=== PATIENT | male | born 1995 | race Caucasian/White ===

== ENCOUNTER 2016-06-16 16:04 | Emergency (ER) | payer OTHER ==
[2016-06-16 16:09] VITALS: RESP 16
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
[2016-06-16] MEDS ORDERED: SILVER NITRATE APPLICATOR 1 APPL TP ONE (16:37)
[2016-06-16 17:50] VITALS: BP 113/84; PULSE 71; TEMP 97.5; O2SAT 100
== END 2016-06-16 18:08 | disposition home or self-care (01) ==
PROC: 2Y41X5Z Packing of Nasal Region using Packing Material (ICD-10-PCS; principal; 2016-06-16)
DX: R04.0 Epistaxis (principal); Z87.891 Personal history of nicotine dependence

== ENCOUNTER 2016-08-05 13:05 | Emergency (ER) | payer OTHER ==
[2016-08-05 13:13] VITALS: RESP 16
[2016-08-05] MEDS ORDERED: ONDANSETRON 4 MG/2 ML VIAL IVP ONE (13:41)
[2016-08-05] MEDS ORDERED: NS 1,000 ML IV ONE ×2 (13:41→14:00)
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
[2016-08-05 13:55] LABS: % IMMATURE GRANULYOCYTES 0.2 % (0.0-1.1); ABSOLUTE IMMATURE GRANULOCYTES 0.01 10^3/uL (0.00-0.10); ADD DIFF? NO; ADD MORPH? NO; ADD SCAN? NO; ATYPICAL LYMPHOCYTE FLAG 90 (0-99); FRAGMENT RBC FLAG 0 (0-99); HEMATOCRIT 52.8 % (40.0-51.0); HEMOGLOBIN 17.8 g/dL (13.7-17.5); LEFT SHIFT FLG 0 (0-99); LIPEMIA HEMOLYSIS FLAG 80 (0-99); MEAN CELL HEMOGLOBIN 30.4 pg (27.9-34.1); MEAN CELL HEMOGLOBIN CONCENTR. 33.7 g/dL (32.4-36.7); MEAN CELL VOLUME 90.3 fL (81.5-99.8); MEAN PLATELET VOLUME 9.6 fL (8.7-11.7); PLATELET CLUMPS FLAG 0 (0-99); PLATELET COUNT 195 10^3/uL (150-400); RED BLOOD CELL COUNT 5.85 10^6/uL (4.40-6.38); RED CELL DISTRIBUTION WIDTH 13.2 % (11.5-15.2)
[2016-08-05 14:14] LABS: ALANINE AMINOTRANSFERASE 33 IU/L (21-72); ALBUMIN 4.5 g/dL (3.5-5.0); ALKALINE PHOSPHATASE 90 IU/L (38-126); ANION GAP 11 mEq/L (8-16); ASPARTATE AMINOTRANSFERASE 25 IU/L (17-59); BILIRUBIN,TOTAL 1.1 mg/dL (0.1-1.4); BILIRUBIN-CONJUGATED 0.4 mg/dL (0.0-0.5); BILIRUBIN-UNCONJUGATED 0.7 mg/dL (0.0-1.1); CALCIUM 9.6 mg/dL (8.5-10.4); CARBON DIOXIDE 25 mEq/l (22-31); CHLORIDE 105 mEq/L (97-110); CREATININE 0.8 mg/dL (0.7-1.3); GLOMERULAR FILTRATION RATE > 60; GLUCOSE 85 mg/dL (70-100); POTASSIUM 4.2 mEq/L (3.5-5.2); SODIUM 141 mEq/L (134-144); TOTAL PROTEIN 7.8 g/dL (6.3-8.2)
[2016-08-05 15:30] VITALS: BP 130/74; PULSE 76; TEMP 98.4; O2SAT 98
== END 2016-08-05 15:28 | disposition home or self-care (01) ==
DX: K52.9 Noninfective gastroenteritis and colitis, unspecified (principal); Z87.891 Personal history of nicotine dependence
CPT/HCPCS: 96374; J2405

== ENCOUNTER → 2018-05-20 | Outpatient (CLI) | payer OTHER ==
[~2018-05-20] MED LIST: IOPAMIDOL (ISOVUE 370) 75 ML BTL IV ONE
== END ==
LOC: FIMAGING 15:24
PROVIDERS: ATTEND Physician Assistant
DX: K92.0 Hematemesis (principal); Z98.890 Other specified postprocedural states
CPT/HCPCS: Q9967